=== PATIENT | female | born 1980 | race Caucasian/White ===

== ENCOUNTER 2022-10-18 05:29 | Inpatient (IN) ==
--- NOTE | 2022-10-06 10:47 | Anesthesiology Consultation ---
Date of Service October 06, 2022 Assessment & Plan (1) Encounter for pre-operative examination: Chart Review Chart Review: entry specialists initiated -COVID screening: Per PAT nursing assessment on 10/06/22. No known COVID-19 positive contacts or current COVID-19 related symptoms. Travel screen negative. Patient vaccinated for Covid. At surgeon discretion if preop Covid testing being done. D/C/E 08/20/21= Done under [facility] with LMA #4. History Surgery Operation Date: 10/18/22 07:30 Proposed Procedures p Repeat Section in LD - Farhad Reid MD Height/Weight Height: 5 ft 7 in Weight: 86.183 kg Allergies Allergy/AdvReac Type Severity Reaction Status Date / Time Penicillins Allergy Mild Rash Verified 10/06/22 10:21 Medications Home Medications Medication Instructions Recorded Confirmed Last Taken vitamin-ferrous 1 tab PO DAILY 08/18/21 10/06/22 08/19/21 15:00 sulfate-folic acid 27 mg-0.3 mg tablet triamcinolone acetonide 0.1 % 1 applic topical DAILY PRN Rash 08/18/21 10/06/22 08/19/21 21:00 topical cream ibuprofen 600 mg tablet 600 mg PO Q6H #40 tabs 08/20/21 10/06/22 Unknown ferrous sulfate 325 mg (65 mg 325 mg PO DAILY 10/06/22 10/06/22 Unknown iron) tablet,delayed release levothyroxine 125 mcg tablet 125 mcg PO QAM 10/06/22 10/06/22 Unknown Past Medical History Medical History Anemia related, > iron supplement Asthma dx as teen, no inhalers, no issues History of COVID-18 Apr 2022 > not hospitalized History of renal stone Hypothyroidism Migraine Raynaud's disease Past Family History Family History Father Diabetes Other No family history of adverse response to anesthesia Past Surgical History Surgical History History of section x1 History of cystoscopy History of dilatation and curettage History of wisdom tooth extraction Social History Smoking Status: Never smoker Do You Dip or Chew Tobacco: No Hx Alcohol Use: No Hx Substance Use: No substance use type: does not use
[2022-10-18] MEDS ORDERED: SODIUM CHLORIDE 0.9% 250 ML IV PRN (05:36)
[2022-10-18] MEDS ORDERED: LACTATED RINGER'S 1,000 ML IV SCH ×3 (05:45→18:00)
[2022-10-18] MEDS ORDERED: CLINDAMYCIN/D5W 900 MG/50 ML BAG IV SCH (06:00)
[2022-10-18] MEDS ORDERED: GENTAMICIN SULFATE 430 MG in DEXTROSE 5% 100 ML IV SCH (06:00)
[2022-10-18] MEDS ORDERED: CITRIC ACID/SODIUM CITRATE 15 ML UDC PO SCH (06:00)
[2022-10-18 06:01] LABS: Basophils # (auto) 0.04 K/uL (0-0.2); Basophils % (auto) 0.4 %; Eosinophils # (auto) 0.08 K/uL (0-0.50); Eosinophils % (auto) 0.7 %; Hematocrit (blood only) 35.1 % (37.0-47.0); Hemoglobin 12.3 g/dl (12.0-16.0); Immature Granulocytes # (auto) 0.15 K/uL (0.01-0.20); Immature Granulocytes % (auto) 1.3 %; Lymphocytes % (auto) 17.9 %; Mean Corpuscular Hemoglobin 30.6 pg (25.0-34.0); Mean Corpuscular Volume 87.3 fL (80.0-100.0); Mean Platelet Volume 10.5 fL (9.4-12.4); Monocytes # (auto) 0.72 K/uL (0.11-0.59); Monocytes % (auto) 6.4 %; Neutrophils # (auto) 8.21 K/uL (1.40-6.50); Neutrophils % (auto) 73.3 %; Platelet Count 266 K/uL (130-400); RDW Coefficient of Variation 13.4 % (11.5-14.5); RDW Standard Deviation 42.9 fL (36.4-46.3); Red Blood Count 4.02 M/uL (4.20-5.40)
--- NOTE | 2022-10-18 07:07 | History & Physical Bridge Note ---
Date of Service October 18, 2022 History & Physical Bridge Note I have examined the patient, reviewed the History & Physical and in the interval since the performance of the History & Physical I have noted the following changes of clinical significance: no changes noted
[2022-10-18] MEDS ORDERED: MoRPHine SULFATE PF 1 MG/ML 10 ML AMP/VIAL ONE (07:22)
[2022-10-18] MEDS ORDERED: ePHEDrine sulfate 50 MG/ML AMP IV PRN (07:42)
[2022-10-18] MEDS ORDERED: ONDANSETRON INJ 2 MG/ML 2 ML VIAL IV PRN (07:42)
[2022-10-18] MEDS ORDERED: LACTATED RINGER'S 500 ML IV PRN (07:42)
[2022-10-18] MEDS ORDERED: NALOXONE HCL 0.08 MG in SYRINGE 1.8 ML IV PRN (07:42)
[2022-10-18] MEDS ORDERED: NALOXONE HCL 0.4 MG/1 ML VIAL/CARP IV PRN (07:42)
[2022-10-18] MEDS ORDERED: PROMETHAZINE HCL 12.5 MG in SODIUM CHLORIDE 0.9% 50 ML IV PRN (07:42)
[2022-10-18] MEDS ORDERED: NALOXONE HCL 1 MG in SODIUM CHLORIDE 0.9% 1000ML 1,000 ML IV PRN (07:42)
[2022-10-18] MEDS ORDERED: NALBUPHINE HCL INJ 10 MG/ML AMP IV PRN (07:42)
[2022-10-18] MEDS ORDERED: MoRPHine SULFATE 2 MG/ML CARP IV PRN (07:42)
[2022-10-18] MEDS ORDERED: MoRPHine SULFATE PF 1 MG/ML 10 ML AMP/VIAL INT SPINAL ONE (07:42)
[2022-10-18] MEDS ORDERED: DC INTRASPINAL MORPHINE SCH (07:45)
[2022-10-18] MEDS ORDERED: SODIUM CHLORIDE 0.9% 1000ML 1,000 ML IV SCH (07:45)
[2022-10-18] MEDS ORDERED: NO NARCOTICS OR SEDATIVES SCH (07:45)
[2022-10-18] MEDS ORDERED: PHENYLEPHRINE 100MCG/ML 5ML SYR ONE (08:34)
[2022-10-18] MEDS ORDERED: METOCLOPRAMIDE HCL INJ 5 MG/ML 2 ML VIAL ONE (08:34)
[2022-10-18] MEDS ORDERED: ONDANSETRON INJ 2 MG/ML 2 ML VIAL ONE (08:34)
[2022-10-18] MEDS ORDERED: OXYTOCIN 10 UNITS/ML VIAL ONE (08:34)
[2022-10-18] MEDS ORDERED: ePHEDrine sulfate 50 MG/ML SYR ONE (08:34)
[2022-10-18] MEDS ORDERED: HYDROCORTISONE ACETATE 25 MG SUPP PR PRN (08:56)
[2022-10-18] MEDS ORDERED: DIPHTHERIA/TETANUS/PERTUSSIS Vaccine (Tdap, Age 7+yrs) 0.5mL SYR/VL IM ONE (08:56)
[2022-10-18] MEDS ORDERED: SENNA 8.6 MG TAB PO PRN (08:56)
[2022-10-18] MEDS ORDERED: BENZOCAINE 20% AER SPR 82.5 GM CAN EXT PRN (08:56)
[2022-10-18] MEDS ORDERED: MAGNESIUM HYDROXIDE SUSP 30 ML UDC PO PRN (08:56)
[2022-10-18] MEDS ORDERED: RHOGAM ONE (09:12)
[2022-10-18] MEDS ORDERED: OXYTOCIN 20 UNITS in LACTATED RINGER'S 1,000 ML IV SCH (09:15)
--- NOTE | 2022-10-18 09:21 | Post Operative Brief Note ---
Immediate Post Op Note v1 Date of Surgery October 18, 2022 Pre & Post Diagnosis Operation Date: 10/18/22 07:30 Pre-Op Diagnosis: Term, elective repeat section. Post-Op Diagnosis: Term, elective repeat section. Delivery of live female child at 0825 I identified the patient and participated in the time-out.: Yes Procedure Operation Date: 10/18/22 07:30 Actual Procedures p Repeat Section, delivery of live female child at 0825(Bilateral) - Farhad Reid MD Surgeon Farhad Reid MD Multiple Punch Press Operator MARCIANO Briceño Estimated Blood Loss 400 Findings Consistent with Post-Op Diagnosis live female Apgars 8/9 weight 8 lbs. 4 0z. CAN x1 Fluids LR 2900 ml. Specimens placenta Drains Marshall Catheter (inserted after spinal, draining clear yellow urine) Anesthesia Type Spinal Complications none Disposition Accompanied Patient To Recovery: Yes Overlapping Procedure I was present for: the critical portions of procedure. I was immediately available: during the entire case. Back up surgeon: was not required during procedure.
[2022-10-18] MEDS: KETOROLAC 30 MG/ML VIAL IV PRN ×2 (09:27→21:19)
--- NOTE | 2022-10-18 10:12 | Operative Report ---
Post Operative Report Pre & Post Diagnosis Operation Date: 10/18/22 07:30 Pre-Op Diagnosis: Term, elective repeat section. Post-Op Diagnosis: Term, elective repeat section. Delivery of live female child at 0825 I identified the patient and participated in the time-out.: Yes Procedure Operation Date: 10/18/22 07:30 Actual Procedures p Repeat Section, delivery of live female child at 0825(Bilateral) - Farhad Reid MD Surgeon Farhad Reid MD Special Effects Designer MARCIANO Briceño Estimated Blood Loss 400 Findings Consistent with Post-Op Diagnosis Findings live female vertex with nuchal cord x1 Apgars 8 and 9 weight 8 pounds 4 ounces Fluids Total fluids 2900 ml. LR Specimens Placenta Drains Marshall Anesthesia Type Spinal Complications None Disposition Accompanied Patient To Recovery: Yes Indications Term elective repeat section patient desires elective versus trial of labor Description of Procedure This is Dr. Cat dictating operative report on Do Alexander date of surgery date of dictation it is the same the preop and postop diagnosis are as above the patient was identified prior to the start of the procedure antibiotics were given preop and a timeout was given before the procedure started. Low Pfannenstiel incision was then made carried the incision down through her prior scar entering into the abdominal cavity in successive layers without difficulty upon entry into the peritoneal cavity the bladder flap was developed with sharp dissection using Metzenbaum scissors a low segment transverse incision over the lower uterine segment was made the incision was then widening of the AP diameter the amniotic sac was next clear fluid was noted the was then delivered from the vertex presentation with a nuchal cord x1 which was reduced at time of delivery delayed cord clamping followed by Apgars of 8 and 9 weight was 8 pounds 14 ounces baby was handed to the marketing operations manager present for the delivery Cord blood was obtained placenta delivered spontaneously and intact the uterus was then exteriorized ring forceps were then placed on both angles and the inferior margin dry lap was then used to curette out the contents of the uterus of all clots and debris uterus was then closed and a layer closure with 0 Vicryl suture in a continuous interlocking fashion followed by a second imbricating suture of 0 Vicryl suture. The ovaries and tubes bilaterally were found to be within normal limits. The initial sponge needle instrument instrument count were found to be correct the uterus was then placed back into the normal anatomical position the contents of the lower uterine segment was were inspected no active bleeding was noted. The muscle was then brought together with 0 Vicryl suture fascia was then reapproximated from both ends using 0 Vicryl suture in a continuous fashion. Sub-cutcular space was then irrigated bleeders were cauterized the subcuticular layer was closed with 3-0 plain suture the skin was then reapproximated with 4-0 Monocryl and Steri-Strips were then applied. I attest to the content of the Intraoperative Record and any orders documented therein. Any exceptions are noted below. Please note that MARCIANO Briceño was necessary for surgery to assist and retraction fundal pressure exposure of the surgical field closure of the uterus and abdomen
[2022-10-18] MEDS: SIMETHICONE 80 MG CHEW PO SCH ×3 (13:19→21:11)
[2022-10-18] MEDS: diphenhydrAMINE 50 MG/ML VIAL IV PRN ×2 (15:21→23:14)
--- NOTE | 2022-10-18 15:32 | Anesthesiology Progress Note ---
Date of Service October 18, 2022 Anesthesia Post Procedure Vital Signs Vital Signs: Temp Pulse Pulse Resp BP BP Pulse Ox 10/18/22 14:00 18 95 10/18/22 13:00 18 95 10/18/22 12:21 36.5 C 75 18 115/78 95 10/18/22 12:21 18 95 10/18/22 11:15 36.5 C 20 10/18/22 10:45 18 10/18/22 10:15 67 20 94 10/18/22 10:15 18 10/18/22 10:05 73 20 97 10/18/22 09:55 18 10/18/22 09:15 36.4 C L 20 10/18/22 11:38 84 97 10/18/22 11:33 68 95 10/18/22 11:32 67 105/63 10/18/22 11:28 69 94 10/18/22 11:23 69 96 10/18/22 11:22 72 122/75 10/18/22 11:18 70 98 10/18/22 11:13 77 96 10/18/22 11:12 68 121/69 10/18/22 11:08 71 94 10/18/22 11:03 68 94 10/18/22 11:02 68 120/68 10/18/22 10:58 74 96 10/18/22 10:53 78 99 10/18/22 10:52 68 122/71 10/18/22 10:48 76 97 10/18/22 10:43 67 94 10/18/22 10:42 69 118/63 10/18/22 10:38 67 96 10/18/22 10:33 72 96 10/18/22 10:32 73 121/61 10/18/22 10:28 73 97 10/18/22 10:23 74 97 10/18/22 10:22 83 117/59 L 10/18/22 10:18 74 97 10/18/22 10:13 75 97 10/18/22 10:12 74 115/57 L 10/18/22 10:08 73 97 10/18/22 10:03 79 96 10/18/22 10:02 78 116/60 10/18/22 09:58 75 96 10/18/22 09:53 77 95 10/18/22 09:52 73 116/57 L 10/18/22 09:48 80 96 10/18/22 09:43 81 93 10/18/22 09:42 82 116/57 L 10/18/22 09:38 80 96 10/18/22 09:33 83 95 10/18/22 09:32 77 128/59 L 10/18/22 09:28 80 94 10/18/22 09:23 80 96 10/18/22 09:22 77 119/62 10/18/22 09:18 93 10/18/22 09:18 78 10/18/22 09:18 80 94 10/18/22 09:13 94 10/18/22 09:13 87 10/18/22 09:13 83 92 10/18/22 09:12 82 117/59 L 10/18/22 07:07 83 125/64 10/18/22 07:01 36.7 C 81 20 123/68 10/18/22 06:23 84 126/77 10/18/22 05:44 93 H 142/77 H 10/18/22 05:45 36.7 C 18 O2 Del Method 10/18/22 14:00 10/18/22 13:00 10/18/22 12:21 Room Air 10/18/22 12:21 10/18/22 11:15 10/18/22 10:45 10/18/22 10:15 10/18/22 10:15 10/18/22 10:05 10/18/22 09:55 10/18/22 09:15 10/18/22 11:38 10/18/22 11:33 10/18/22 11:32 10/18/22 11:28 10/18/22 11:23 10/18/22 11:22 10/18/22 11:18 10/18/22 11:13 10/18/22 11:12 10/18/22 11:08 10/18/22 11:03 10/18/22 11:02 10/18/22 10:58 10/18/22 10:53 10/18/22 10:52 10/18/22 10:48 10/18/22 10:43 10/18/22 10:42 10/18/22 10:38 10/18/22 10:33 10/18/22 10:32 10/18/22 10:28 10/18/22 10:23 10/18/22 10:22 10/18/22 10:18 10/18/22 10:13 10/18/22 10:12 10/18/22 10:08 10/18/22 10:03 10/18/22 10:02 10/18/22 09:58 10/18/22 09:53 10/18/22 09:52 10/18/22 09:48 10/18/22 09:43 10/18/22 09:42 10/18/22 09:38 10/18/22 09:33 10/18/22 09:32 10/18/22 09:28 10/18/22 09:23 10/18/22 09:22 10/18/22 09:18 10/18/22 09:18 10/18/22 09:18 10/18/22 09:13 10/18/22 09:13 10/18/22 09:13 10/18/22 09:12 10/18/22 07:07 10/18/22 07:01 10/18/22 06:23 10/18/22 05:44 10/18/22 05:45 Pain Intensity Bilateral Abdomen: Pain Intensity: 3 Transfer of Care Handoff Completed per policy Notes Mental Status: alert / awake / arousable Patient Amnestic to Procedure: Yes Nausea / Vomiting: adequately controlled Pain: adequately controlled Airway Patency, RR, SpO2: stable & adequate BP & HR: stable & adequate Hydration State: stable & adequate Neuraxial Anesthesia: was administered and sensory block is resolving Anesthetic Complications: no major complications apparent
[2022-10-18] MEDS: DOCUSATE SODIUM 100 MG CAP PO SCH (21:11)
[2022-10-19] MEDS ORDERED: KETOROLAC 30 MG/ML VIAL IV PRN (02:25)
[2022-10-19] MEDS ORDERED: diphenhydrAMINE Capsule 25 MG CAP PO PRN (02:25)
[2022-10-19] MEDS ORDERED: MEPERIDINE HCL 50 MG/ML CARP IV PRN (02:25)
[2022-10-19] MEDS ORDERED: diphenhydrAMINE 50 MG/ML VIAL IV PRN (02:25)
[2022-10-19] MEDS ORDERED: PROMETHAZINE HCL 25 MG in SODIUM CHLORIDE 0.9% 50 ML IV PRN (02:25)
[2022-10-19] MEDS ORDERED: ONDANSETRON INJ 2 MG/ML 2 ML VIAL IV PRN (02:25)
[2022-10-19] MEDS: oxyCODONE/ACETAMINOPHEN 5mg/325mg TAB PO PRN ×3 (02:37→20:09)
[2022-10-19] MEDS: IBUPROFEN 600 MG TAB PO PRN ×5 (02:38→20:09)
[2022-10-19] MEDS: LEVOTHYROXINE SODIUM 125 MCG TABLET PO SCH (06:09)
[2022-10-19] MEDS: DOCUSATE SODIUM 100 MG CAP PO SCH ×2 (09:07→20:07)
[2022-10-19] MEDS: PRENATAL VITAMIN 1 TAB PO SCH (09:07)
[2022-10-19] MEDS: SIMETHICONE 80 MG CHEW PO SCH ×4 (09:07→20:09)
[2022-10-19] MEDS: FERROUS SULFATE 325 MG TAB PO SCH (09:07)
[2022-10-19 09:28] LABS: Basophils # (auto) 0.04 K/uL (0-0.2); Basophils % (auto) 0.4 %; Eosinophils # (auto) 0.07 K/uL (0-0.50); Eosinophils % (auto) 0.6 %; Hematocrit (blood only) 34.3 % (37.0-47.0); Hemoglobin 11.6 g/dl (12.0-16.0); Immature Granulocytes # (auto) 0.14 K/uL (0.01-0.20); Immature Granulocytes % (auto) 1.2 %; Lymphocytes # (auto) 1.34 K/uL (1.2-3.4); Lymphocytes % (auto) 11.9 %; Mean Corpuscular Hemoglobin 30.3 pg (25.0-34.0); Mean Corpuscular Hgb Conc 33.8 g/dL (32.0-36.0); Mean Corpuscular Volume 89.6 fL (80.0-100.0); Mean Platelet Volume 10.9 fL (9.4-12.4); Monocytes # (auto) 0.56 K/uL (0.11-0.59); Neutrophils # (auto) 9.14 K/uL (1.40-6.50); Neutrophils % (auto) 80.9 %; Platelet Count 245 K/uL (130-400); RDW Coefficient of Variation 13.6 % (11.5-14.5); RDW Standard Deviation 44.2 fL (36.4-46.3); Red Blood Count 3.83 M/uL (4.20-5.40); White Blood Count 11.29 K/ul (4.8-10.8)
--- NOTE | 2022-10-19 18:20 | Obstetrical Progress Note ---
Date of Service October 19, 2022 Assessment & Plan (1) Normal course: Continue routine care Plan to discharge home tomorrow Subjective Ambulation: ambulating normally Voiding: no voiding problems Passing Gas:: Yes Diet Tolerance:: regular diet Lochia:: Small Feeding Type:: breast feeding Current Pain Level(1-10): 0 Doing well, bonding well with baby. Having some difficulty with breast-feeding, which is similar to her last . Denies other concerns at this time Physical Exam Constitutional WD/WN, vitals as above Respiratory normal respiratory effort, lungs clear to auscultation Cardiovascular RRR, no murmur, no edema Gastrointestinal (Abdomen) normal bowel sounds, soft, nontender, no hepatosplenomegaly Uterus below umbilicus Incision clean dry intact, Steri-Strips in place Skin no rashes, warm and dry Results & Data Vital Signs (Past 12 Hours) Vital Signs Temp Pulse Resp BP Pulse Ox O2 Del Method 10/19/22 16:00 36.9 C 87 16 112/73 96 Room Air 10/19/22 07:20 36.5 C 78 16 114/75 96 Room Air Laboratory Results Laboratory Results WBC 11.29 K/ul (4.8-10.8) H 10/19/22 08:10 RBC 3.83 M/uL (4.20-5.40) L 10/19/22 08:10 Hgb 11.6 g/dl (12.0-16.0) L 10/19/22 08:10 Hct 34.3 % (37.0-47.0) L 10/19/22 08:10 MCV 89.6 fL (80.0-100.0) 10/19/22 08:10 MCH 30.3 pg (25.0-34.0) 10/19/22 08:10 MCHC 33.8 g/dL (32.0-36.0) 10/19/22 08:10 RDW Std Deviation 44.2 fL (36.4-46.3) 10/19/22 08:10 RDW Coeff of Nadiya 13.6 % (11.5-14.5) 10/19/22 08:10 Plt Count 245 K/uL (130-400) 10/19/22 08:10 MPV 10.9 fL (9.4-12.4) 10/19/22 08:10 Immature Gran % (Auto) 1.2 % 10/19/22 08:10 Neut % (Auto) 80.9 % 10/19/22 08:10 Lymph % (Auto) 11.9 % 10/19/22 08:10 Coos % (Auto) 5.0 % 10/19/22 08:10 Eos % (Auto) 0.6 % 10/19/22 08:10 Baso % (Auto) 0.4 % 10/19/22 08:10 Neut # (Auto) 9.14 K/uL (1.40-6.50) H 10/19/22 08:10 Lymph # (Auto) 1.34 K/uL (1.2-3.4) 10/19/22 08:10 Coos # (Auto) 0.56 K/uL (0.11-0.59) 10/19/22 08:10 Eos # (Auto) 0.07 K/uL (0-0.50) 10/19/22 08:10 Baso # (Auto) 0.04 K/uL (0-0.2) 10/19/22 08:10 Immature Gran # (Auto) 0.14 K/uL (0.01-0.20) 10/19/22 08:10 SARS-CoV-2, RNA, NAAT NEGATIVE (NEGATIVE) 10/18/22 05:50 Blood Type O Negative 10/18/22 05:46 Antibody Screen NEGATIVE 10/18/22 05:46 Crossmatch See Detail 10/18/22 05:46
[2022-10-19] MEDS ORDERED: bisacodyL 5 MG TABEC PO SCH (20:00)
[2022-10-20] MEDS: oxyCODONE/ACETAMINOPHEN 5mg/325mg TAB PO PRN ×3 (00:33→12:07)
[2022-10-20] MEDS: IBUPROFEN 600 MG TAB PO PRN ×3 (00:34→12:08)
[2022-10-20] MEDS: LEVOTHYROXINE SODIUM 125 MCG TABLET PO SCH (06:43)
[2022-10-20 07:15] LABS: Hematocrit (blood only) 35.4 % (37.0-47.0); Hemoglobin 11.8 g/dl (12.0-16.0)
[2022-10-20] MEDS ORDERED: bisacodyL 10 MG SUPP PR PRN (08:56)
--- NOTE | 2022-10-20 09:14 | Obstetrical Progress Note ---
Date of Service October 20, 2022 Assessment & Plan (1) History of section: discharged Subjective Ambulation: ambulating normally Voiding: no voiding problems Passing Gas:: Yes Diet Tolerance:: regular diet Lochia:: Small Feeding Type:: breast feeding Current Pain Level(1-10): 0 doing well Physical Exam Constitutional WD/WN, vitals as above Respiratory normal respiratory effort, lungs clear to auscultation Cardiovascular RRR, no murmur, no edema Gastrointestinal (Abdomen) Inspection/Auscultation: abdomen normal to inspection incision c/d/i Musculoskeletal Extremities: extremities normal to inspection Skin no rashes, warm and dry Neurologic patellar DTR's 2+ bilat, sensation intact Psychiatric A+Ox3, euthymic affect Results & Data Vital Signs (Past 12 Hours) Vital Signs Temp Pulse Resp BP Pulse Ox O2 Del Method 10/20/22 00:00 36.6 C 87 18 128/87 96 Room Air 10/20/22 00:00 Room Air
[2022-10-20] MEDS: FERROUS SULFATE 325 MG TAB PO SCH (09:30)
[2022-10-20] MEDS: DOCUSATE SODIUM 100 MG CAP PO SCH (09:30)
[2022-10-20] MEDS: PRENATAL VITAMIN 1 TAB PO SCH (09:30)
[2022-10-20] MEDS: SIMETHICONE 80 MG CHEW PO SCH ×2 (09:30→12:07)
== END 2022-10-20 14:00 | disposition home or self-care (01) | DRG 788 ==
LOC: 4S1 05:29 → EDSTATUS 07:30 → 4E2 11:50